=== PATIENT | female | born 1985 | race Caucasian/White ===

== ENCOUNTER 2020-02-03 12:25 | Emergency (ER) | payer SELFPAY ==
[~2020-02-03] VITALS: Ht 165.1 cm; Wt 81.6 kg
[2020-02-03 12:33] VITALS: BP_SYST 121
[2020-02-03 13:01] VITALS: BP_SYST 121
== END 2020-02-03 13:01 | disposition home or self-care (01) ==
LOC: SED 12:25
DX: M65.4 Radial styloid tenosynovitis [de Quervain] (principal)
CPT/HCPCS: 99283

== ENCOUNTER 2020-02-20 09:53 | Emergency (ER) | payer SELFPAY ==
[~2020-02-20] VITALS: Ht 165.1 cm; Wt 81.6 kg
[2020-02-20 10:02] VITALS: BP_SYST 142
[2020-02-20 10:25] VITALS: BP_SYST 142
== END 2020-02-20 10:25 | disposition home or self-care (01) ==
LOC: SED 09:53
DX: M65.4 Radial styloid tenosynovitis [de Quervain] (principal); M25.532 Pain in left wrist
CPT/HCPCS: 99283